=== PATIENT | male | born 1955 | race Caucasian/White ===

== ENCOUNTER → 2023-09-24 07:29 | Outpatient (REF) | payer BC, SELFPAY | LOC: RAD 07:29 | PROVIDERS: ATTENDING PHYSICIAN Family Medicine | DX: R79.89 Other specified abnormal findings of blood chemistry (principal) | CPT/HCPCS: 76700 ==

== ENCOUNTER → 2023-10-31 13:48 | Outpatient (REF) | payer BC, SELFPAY | LOC: MRI 3T 13:48 | PROVIDERS: ATTENDING PHYSICIAN Family Medicine | DX: R16.0 Hepatomegaly, not elsewhere classified (principal); R93.89 Abnormal findings on diagnostic imaging of other specified body structures; Z01.818 Encounter for other preprocedural examination | CPT/HCPCS: 70030; 74183; A9575 ==

== ENCOUNTER 2023-12-13 12:37 | Emergency (ER) | payer BC, SELFPAY ==
[2023-12-13] VITALS (8 sets, daily range): BP systolic 113–152; BP diastolic 67–88; BMI 22.9
--- NOTE | 2023-12-13 14:11 | ED.GENMED ---
History of Present Illness
General
Chief Complaint: Chest Pain
Time Seen by Provider: 12/13/23 14:01
History of Present Illness
History of Present Illness:
68-year-old male with history of iin-mjnydlm-oseebmred diabetes who presents to the emergency department for evaluation of chest pressure, fatigue, and exertional shortness of breath that been ongoing for the past several months. States has had at
least 2 months of the symptoms, they are worse when he is at work but they still are provoked by exertion at home. He has no pain at rest. He is asymptomatic currently. He also notes that he felt dizzy last night and feels as though he may have
fallen down. Denies any extremity weakness but does note occasional paresthesias in the fingers, comparable to paresthesias he has previously had the toes that was diagnosed with diabetic neuropathy. Last A1c was 'in the sevens' he does have
strong family history of cardiovascular disease, non-smoker
Past History
Past History
ED Past Medical History: None
ED Past Surgical History: None
Review of Systems
Review of Systems
Allergies reviewed?: Yes
All Other Systems: ROS reviewed and negative except as documented in HPI and ROS
Phy Exam
Physical Exam
Physical Exam:
GEN: Well appearing, NAD, WDWN
HEENT: Oral mucosa moist, no scleral icterus
Cardiac: Regular rate and rhythm, no murmurs
Lung: No respiratory distress, no tachypnea, lungs clear to auscultation
MSK: No gross deformity or injuries
Skin: Good color, no pallor or jaundice, no rashes
Neuro: AO x3, moves all extremities freely
Psych: Calm, cooperative
Scores
Heart Score for Chest Pain Patients
STEMI patient?: No
History: Moderately Suspicious
ECG: Nonspecific Repolarization
Age: >/= 65 years
Risk Factors: 1 or 2 Risk Factors
Troponin: </= Normal Limit
Heart Score for Chest Pain Patients: 5
Heart Score Risk: 20.3% MACE over next 6 weeks
Course
Orders/Labs/Results
Orders:
Orders
12/13/23 12:41
EKG [Electrocardiogram (*1)] Urgent
Reason for Study: Chest Pain
EKG- Treatment ONCE
12/13/23 14:11
CR Chest - 2 Views Urgent
Comment:
Reason For Exam: angina
12/13/23 14:20
Complete Blood Count/With Diff Urgent
Comprehensive Metabolic Panel Urgent
Troponin I Urgent
12/13/23 15:55
EKG- Treatment ONCE
12/13/23 17:15
Troponin I Routine
12/13/23 17:20
EKG [Electrocardiogram (*1)] Routine
Reason for Study: Chest Pain
Abnormal Lab Results
12/13/23
14:20
RBC 4.02 L 10^6/uL
(4.70-6.10)
Hgb 12.6 L g/dL
(13.0-18.0)
Hct 38.2 L %
(39.0-52.0)
MCV 95.0 H fL
(80.0-94.0)
MCH 31.3 H pg
(27.0-31.0)
Absolute Monos (auto) 0.8 H 10^3/uL
(0.1-0.6)
Immature Gran % 0.6 H %
(0-0.5)
Lymphocytes % 20.3 L %
(20.5-51.1)
Monocytes % 12.1 H %
(1.7-9.3)
Creatinine 0.6 L mg/dL
(0.7-1.3)
Glucose 312 H mg/dl
(70-99)
Alkaline Phosphatase 240 H U/L
(38-126)
12/13/23 14:20
12/13/23 14:20
Vital Signs
Initial and Last Documented VS:
Initial Vital Signs
Temp Pulse Resp BP Pulse Ox
98.5 F 84 16 152/82 100
12/13/23 12:38 12/13/23 12:38 12/13/23 12:38 12/13/23 12:38 12/13/23 12:38
Last Documented Vital Signs
Temp Pulse Resp BP Pulse Ox
98.5 F 81 16 119/74 99
12/13/23 12:38 12/13/23 18:15 12/13/23 18:15 12/13/23 18:00 12/13/23 18:15
MDM/Problems Addressed
MDM/Problems Addressed:
Patient does have an elevated heart score Of his age and risk factors however he has no active chest pain here and his symptoms are improved with exertion. With the presumption that this is coronary related chest he does have moderate risk thus is
suitable for the close cardiology follow-up hotline, I will start him on baby aspirin. His blood pressure is not significant elevated thus I would not start him on nitrates or beta-blockers from the ER at this time. Educated strictly on close ED
return parameters
Comment
Comment:
EKG independently interpreted by me shows a normal sinus rhythm with a right bundle and left anterior fascicular block, wide QRS with a duration of 158, QTc of 476, no ST changes concerning for ischemia
*Critical Care Note
Total Time (30-74mins, 75-104mins- exclusive of procedures): Not Applicable
ED Attending Note
-
Portions of this chart may have been created with voice recognition software.� Occasional wrong word or��sound alike� substitutions may have occurred due to the inherent limitations of voice recognition software.
Discharge Plan
Departure
Patient Disposition: Home (Routine Discharge)
Date of Disposition: 12/13/23
Time of Disposition: 18:20
Patient with high blood pressure during this ER visit?: No
Discharge Problem:
Stable angina pectoris
Instructions: Chest Pain DCA Follow Up
Prescriptions:
New
aspirin 81 mg tablet,delayed release (DR/EC)
81 mg PO DAILY Qty: 30 0RF
No Action
quetiapine 25 mg Tablet
25 mg PO DAILY@0500
Patient Comments:
patient work 3rd shift
metformin 1,000 mg Tablet
1,000 mg PO DAILY
Patient Comments:
patient know there twice a day but onl take one b/e there so large
gabapentin 100 mg Capsule
100 mg PO DAILY@0500
Jardiance 25 mg Tablet
25 mg PO DAILY
Theragen Tablet
1 tab PO DAILY
ibuprofen [Advil] 200 mg Tablet
400 mg PO Q6HPRN PRN (Reason: mild pain)
docusate sodium [Colace] 100 mg Capsule
100 mg PO DAILYPRN PRN (Reason: constipation)
Referrals:
Mateo Padron DO [Family Provider] -
Stand Alone Forms: Return to Work
Activity Restrictions/Additional Instructions:
If you develop chest pain at rest, return to the ER immediately
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
Interventions
Interventions:
*Risk Screen - Suicide Last Done: 12/13/23 12:38
*General Assessment Last Done: 12/13/23 12:38
*Neglect/Abuse Screening Last Done: 12/13/23 12:38
ED- Fall Risk Assessment Last Done: 12/13/23 13:38
*ED COVID-19 Vaccine History Last Done: 12/13/23 12:38
*Nursing Disposition Last Done: 12/13/23 18:47
ED- Cardiac Assessment Last Done: 12/13/23 13:37
Discharge Date and Time
Discharge Date/Time: 12/13/23 18:47
Print Language: FAROESE
[2023-12-13 14:27] LABS: % Basophils 0.6 % (0-2); % Eosinophils 4.9 % (0-6); % Immature Granulocytes 0.6 % (0-0.5); % Lymphocytes 20.3 % (20.5-51.1); % Monocytes 12.1 % (1.7-9.3); % Neutrophils 61.5 % (42.2-75.2); Absolute Eosinophils 0.3 10^3/uL (0-0.7); Absolute Lymphocytes 1.4 10^3/uL (1.2-3.4); Absolute Monocytes 0.8 10^3/uL (0.1-0.6); Absolute Neutrophils 4.2 10^3/uL (1.4-6.5); Hematocrit 38.2 % (39.0-52.0); Hemoglobin 12.6 g/dL (13.0-18.0); Mean Corpuscular Hgb 31.3 pg (27.0-31.0); Mean Platelet Volume 10.1 fL (7.4-10.4); Nucleated Red Blood Cells % 0 % (-); Platelet Count 290 10^3/uL (130-400); Red Blood Cell Count 4.02 10^6/uL (4.70-6.10); Red Cell Dist. Width 13.6 % (11.5-14.5); White Blood Cell Count 6.9 10^3/uL (4.8-10.8)
[2023-12-13 14:47] LABS: ALT (SGPT) 29 U/L (0-50); AST (SGOT) 26 U/L (17-59); Albumin 3.8 g/dl (3.5-5.0); Alkaline Phosphatase 240 U/L (38-126); Blood Urea Nitrogen 19 mg/dl (9-20); Calcium 9.3 mg/dl (8.4-10.2); Carbon Dioxide 30 mmol/L (22-30); Chloride 101 mmol/L (98-107); Estimated Creatinine Clearance > 125 ml/min; Glucose 312 mg/dl (70-99); Potassium 4.4 mmol/L (3.5-5.1); Sodium 138 mmol/L (135-145); Total Bilirubin 0.8 mg/dl (0.2-1.3); Total Protein 6.5 g/dl (6.3-8.2); eGFR > 60.00
[2023-12-13 17:52] LABS: Troponin I < 0.012 ng/ml
== END 2023-12-13 18:47 | disposition home or self-care (01) ==
LOC: EMR 12:37
PROVIDERS: Physician Assistant; EMERGENCY PHYSICIAN Emergency Medicine; FAMILY PHYSICIAN Family Medicine
DX: I20.89 Other forms of angina pectoris (principal); R53.83 Other fatigue; R42 Dizziness and giddiness; R06.02 Shortness of breath; E11.40 Type 2 diabetes mellitus with diabetic neuropathy, unspecified; I45.2 Bifascicular block; Z79.82 Long term (current) use of aspirin; Z79.84 Long term (current) use of oral hypoglycemic drugs
CPT/HCPCS: 99284; 71046; 80053; 84484; 85025; 93005

== ENCOUNTER → 2024-01-03 13:33 | Outpatient (REF) | payer BC, SELFPAY | LOC: RCS 13:33 | PROVIDERS: ATTENDING PHYSICIAN Internal Medicine Cardiovascular Disease; FAMILY PHYSICIAN Family Medicine | DX: R07.9 Chest pain, unspecified (principal) | CPT/HCPCS: 93306 ==

== ENCOUNTER → 2024-01-17 08:11 | Outpatient (REF) | payer BC, SELFPAY | LOC: DHCBC/DCA 08:11 | PROVIDERS: ATTENDING PHYSICIAN Internal Medicine Cardiovascular Disease; FAMILY PHYSICIAN Family Medicine | DX: R07.9 Chest pain, unspecified (principal) | CPT/HCPCS: 78452; 93017; A9500 ==

== ENCOUNTER → 2024-02-08 06:26 | Day surgery (SDC) | payer BC, SELFPAY ==
[2024-02-08 07:53] LABS: Glucose - Point of Care 109 mg/dl (70-99)
== END ==
LOC: GI 06:26
PROVIDERS: ATTENDING PHYSICIAN Internal Medicine Gastroenterology
DX: Z12.11 Encounter for screening for malignant neoplasm of colon (principal); K64.8 Other hemorrhoids; R74.8 Abnormal levels of other serum enzymes; K63.5 Polyp of colon; D12.1 Benign neoplasm of appendix; R13.10 Dysphagia, unspecified; K22.2 Esophageal obstruction; K22.89 Other specified disease of esophagus
CPT/HCPCS: 45385; 45381; 43239; 88305; 82962

== ENCOUNTER → 2024-05-22 09:00 | Outpatient (REF) | payer BC, SELFPAY | LOC: RAD 09:00 | PROVIDERS: ATTENDING PHYSICIAN Family Medicine | DX: M25.561 Pain in right knee (principal) | CPT/HCPCS: 73564 ==

== ENCOUNTER 2024-05-30 06:29 | Day surgery (SDC) | payer BC, SELFPAY ==
[2024-05-30 07:54] VITALS: BP 152/82; BMI 22.5
[2024-05-30 08:16] LABS: Glucose - Point of Care 111 mg/dl (70-99)
[2024-05-30 10:41] VITALS: BP 109/73
[2024-05-30 10:45] VITALS: BP 135/66
[2024-05-30 11:00] VITALS: BP 119/75
[2024-05-30 11:15] VITALS: BP 134/82
== END 2024-05-30 11:32 | disposition home or self-care (01) ==
LOC: SDS 06:29
PROVIDERS: ATTENDING PHYSICIAN Internal Medicine Gastroenterology
DX: D12.0 Benign neoplasm of cecum (principal); K63.5 Polyp of colon; K64.0 First degree hemorrhoids
CPT/HCPCS: 45390; 45385; 88305; 82962

== ENCOUNTER 2024-09-25 06:28 | Day surgery (SDC) | payer BC, SELFPAY ==
[2024-09-25 11:45] LABS: Glucose - Point of Care 157 mg/dl (70-99)
== END 2024-09-25 12:57 | disposition home or self-care (01) ==
LOC: GI 06:28
PROVIDERS: ATTENDING PHYSICIAN Internal Medicine Gastroenterology
DX: R13.10 Dysphagia, unspecified (principal); K22.2 Esophageal obstruction; K22.89 Other specified disease of esophagus; K31.89 Other diseases of stomach and duodenum; K21.9 Gastro-esophageal reflux disease without esophagitis; K29.50 Unspecified chronic gastritis without bleeding; K20.0 Eosinophilic esophagitis
CPT/HCPCS: 43239; 88305; 82962; 88342

== ENCOUNTER → 2025-04-09 13:04 | Outpatient (REF) | payer BC, SELFPAY | LOC: RAD 13:04 | PROVIDERS: ATTENDING PHYSICIAN Internal Medicine Gastroenterology; FAMILY PHYSICIAN Family Medicine | DX: R74.8 Abnormal levels of other serum enzymes (principal) | CPT/HCPCS: 76700 ==